=== PATIENT | female | born 1955 | race Caucasian/White ===

== ENCOUNTER 2016-06-28 09:12 | Day surgery (SDC) | payer OTHER ==
[2016-06-24 16:03] VITALS: BMI 27.1
[2016-06-28 09:47] VITALS: TEMP 97.8
[2016-06-28] MEDS: LACTATED RINGERS 1,000 ML IV SCH ×2 (09:54→10:01)
[2016-06-28] MEDS ORDERED: PROPOFOL 10 MG/ML 20 ML VIAL IV ONE (10:04)
[2016-06-28] MEDS ORDERED: MIDAZOLAM 2 MG/2 ML VIAL ONE (10:04)
[2016-06-28] MEDS ORDERED: fentaNYL (PF) 50 MCG/ML 2 ML AMP ONE (10:04)
--- NOTE | 2016-06-28 10:10 | P.GSHP ---
History of Present Illness H&P Date: 06/28/16 Chief Complaint: Colon cancer screening Patient here today for colonoscopy. She has not had one previously. She has no bowel related complaints. No family history of colon cancer. Past Medical History Past Medical History: Hyperlipidemia, Hypertension, Osteoarthritis (OA), Skin Disorder, Sleep Apnea/CPAP/BIPAP Additional Past Medical History / Comment(s): rash from soap allergy, History of Any Multi-Drug Resistant Organisms: None Reported Past Surgical History: Breast Surgery, Tubal Ligation Additional Past Surgical History / Comment(s): hemorrhoidectomy, left breast biopsy Past Anesthesia/Blood Transfusion Reactions: Motion Sickness, Postoperative Nausea & Vomiting (PONV) Past Psychological History: No Psychological Hx Reported Smoking Status: Current every day smoker Past Alcohol Use History: None Reported Additional Past Alcohol Use History / Comment(s): smokes < 1 PPD, has smoked since age 24 Past Drug Use History: None Reported - Past Family History Mother Family Medical History: Cancer Additional Family Medical History / Comment(s): pancreatic Medications and Allergies Home Medications Medication Instructions Recorded Confirmed Type Atorvastatin [Lipitor] 40 mg PO QAM 06/24/16 06/28/16 History Benazepril [Lotensin] 10 mg PO QAM 06/24/16 06/28/16 History Cholecalciferol [Vitamin D3] 5,000 unit PO DAILY 06/24/16 06/28/16 History Allergies Allergy/AdvReac Type Severity Reaction Status Date / Time nickel Allergy Rash/Hives Verified 06/28/16 09:57 Surgical - Exam Vital Signs Temp Pulse Resp BP Pulse Ox 97.8 F 94 18 135/74 96 06/28/16 09:46 06/28/16 09:46 06/28/16 09:46 06/28/16 09:46 06/28/16 09:46 Physical exam: General: Well-developed, well-nourished HEENT: Normocephalic, sclerae nonicteric Abdomen: Nontender, nondistended Extremities: No edema Neuro: Alert and oriented Assessment and Plan (1) Colon cancer screening Narrative/Plan: Will proceed with colonoscopy at this time. Status: Acute
--- NOTE | 2016-06-28 10:31 | P.PCN ---
Date of Procedure: 06/28/16 Procedure(s) Performed: PREOPERATIVE DIAGNOSIS: Colon cancer screening POSTOPERATIVE DIAGNOSIS: Rectal polyp 2 PROCEDURE: Colonoscopy with snare polypectomy ANESTHESIA: MAC SURGEON: Chay Grady M.D. SPECIMENS: Rectal polyp ENDOSCOPIC PROCEDURE: The patient was placed on the endoscopy table in the left decubitus position. The Olympus colonoscope was inserted into the anus and passed under direct visualization to the base of the cecum. The appendiceal orifice was visualized. From that point the scope was slowly withdrawn inspecting all surfaces carefully. There were no neoplastic inflammatory or polypoid lesions throughout the cecum, ascending, transverse, descending, and sigmoid colon. In the rectum there were 2 small polyps removed using the snare with cautery technique. No visible diverticulosis was seen. Digital rectal examination was normal. The patient was taken to the recovery room in stable condition per anesthesia guidelines. RECOMMENDATIONS: Await biopsy results.
[2016-06-28 10:33] VITALS: RESP 16
[2016-06-28 10:53] VITALS: BP 110/71; PULSE 89
== END 2016-06-28 11:09 | disposition home or self-care (01) ==
LOC: ORWHC2ENDO 09:12
PROVIDERS: ATTEND Surgery
DX: Z12.11 Encounter for screening for malignant neoplasm of colon (principal); K62.1 Rectal polyp; E78.5 Hyperlipidemia, unspecified; I10 Essential (primary) hypertension; G47.30 Sleep apnea, unspecified; Z99.89 Dependence on other enabling machines and devices; F17.200 Nicotine dependence, unspecified, uncomplicated; Z79.899 Other long term (current) drug therapy; Z91.09 Other allergy status, other than to drugs and biological substances
CPT/HCPCS: 88305; 45385; J2250; J3010; J2704

== ENCOUNTER 2017-01-27 07:30 | Inpatient (IN) | payer OTHER ==
[2017-01-22 09:11] VITALS: BMI 26.6
--- NOTE | 2017-01-26 16:18 | HP ---
HISTORY AND PHYSICAL Surgery is scheduled for 01/27/2017. Anastasiya Sanders is a 61-year-old patient seen with symptomatic left knee osteoarthritis. After discussing treatment options, she elected to proceed with left total knee arthroplasty. Consent was obtained. Medical clearance was provided by Dr. Flor. PAST MEDICAL HISTORY: Hypertension. PAST SURGICAL HISTORY: Noncontributory. DAILY MEDICATIONS: Atorvastatin, benazepril. ALLERGIES: None reported. SOCIAL HISTORY: Patient currently smokes 1 pack cigarettes daily. PHYSICAL EXAMINATION: Evaluation left knee: Range of motion is -2/3to 125 degrees. Mild effusion. Tenderness along the lateral joint line. Positive lateral Evelyn's. Crepitus along the lateral and patellofemoral compartments. Range of motion. Pain with patellofemoral compression. Ligaments stable. Hip rotation without pain. Distal neurovascular exam intact. RADIOGRAPHS: Left knee radiographs reveal severe lateral, moderate patellofemoral compartment osteoarthritis. IMPRESSION: Left knee osteoarthritis. PLAN: Left total knee arthroplasty. MMODL / IJN: [id number] /
[~2017-01-27 07:30] MED LIST: ACETAMINOPHEN TAB 500 MG TAB PO ONE; DEXAMETHASONE SOD PHOSPHATE 10 MG/ML 1 ML VIAL IV ONE; MELOXICAM 7.5 MG TAB PO ONE; MIDAZOLAM 2 MG/2 ML VIAL IV PRN; ONDANSETRON 4 MG/2 ML VIAL IVP ONE; SCOPOLAMINE 1.5MG/72HR PATCH TRANSDERM ONE; TRANEXAMIC ACID 1,000 MG in SODIUM CHLORIDE 0.9% 100 ML IVPB ONE; ceFAZolin IN SWFI 2 GM/20 ML SYRINGE IVP ONE
[2017-01-27] MEDS: LACTATED RINGERS 1,000 ML IV SCH (09:21)
[2017-01-27] MEDS ORDERED: LIDOCAINE 1% 20 ML VIAL (10MG/ML) FOR IV START INTRADERMA ONE (09:21)
[2017-01-27] MEDS ORDERED: ROPIVACAINE 1,100 MG, SODIUM CHLORIDE 0.9% 330 ML MISCELLANE PRN ×2 (10:07)
--- NOTE | 2017-01-27 10:09 | P.ONQ ---
Anesthesiology Proc Note - PNB - Peripheral Nerve Block Performed Left Adductor Canal Indication: Acute Post-Operative Pain, Requested by physician (Dr Schroeder) Sedation Type: Sedate with meaningful contact maintained Preparation: Sterile Dressing Position: Supine Catheter: Indwelling Needle Types: Other (see comment) (Ranjan) Needle Size: 100mm (4") Needle Gauge: 20 Technique: Ultrasound Injectate: 0.5% Ropivacaine (see comment for volume) (20cc) Blood Aspirated: No Pain Paresthesia on Injection Noted: No Resistance on Injection: Normal Events: Uneventful and Well Tolerated
[2017-01-27] MEDS ORDERED: ROPIVACAINE 246.25 MG, EPINEPHrine 0.5 MG, KETOROLAC 30 MG, cloNIDine HCL/PF 80 MCG, WA... MISCELLANE ONE ×5 (10:22)
[2017-01-27] MEDS ORDERED: NEOSTIGMINE 1 MG/ML 10 ML VIAL ONE (10:57)
[2017-01-27] MEDS ORDERED: ROCURONIUM BROMIDE 10 MG/ML 10 ML VIAL IV ONE (10:57)
[2017-01-27] MEDS ORDERED: LIDOCAINE 1% INJ 10MG/ML (20 ML MDV) ONE (10:57)
[2017-01-27] MEDS ORDERED: HYDROmorphone (PF) 1 MG/ML ONE (10:57)
[2017-01-27] MEDS ORDERED: SODIUM CHLORIDE 0.9% 100 ML BAG ONE (10:57)
[2017-01-27] MEDS ORDERED: GLYCOPYRROLATE 0.2 MG/ML 2 ML VIAL ONE (10:57)
[2017-01-27] MEDS ORDERED: SUCCINYLCHOLINE CHLORIDE 100 MG/5 ML SYR IV ONE (10:57)
[2017-01-27] MEDS ORDERED: fentaNYL (PF) 50 MCG/ML 2 ML AMP ONE (10:57)
[2017-01-27] MEDS ORDERED: PROPOFOL 10 MG/ML 20 ML VIAL IV ONE (10:57)
[2017-01-27] MEDS ORDERED: TRANEXAMIC ACID 1,000 MG/10 ML VIAL ONE (10:57)
[2017-01-27] MEDS ORDERED: SODIUM CHLORIDE 0.9% 0 ML with ceFAZolin 2 GM IV ONE ×2 (10:57)
[2017-01-27] MEDS ORDERED: LACTATED RINGERS 1,000 ML IV ONE (12:30)
--- NOTE | 2017-01-27 13:06 | P.OP ---
Date of Procedure: 01/27/17 Preoperative Diagnosis: Left knee osteoarthritis Postoperative Diagnosis: Left knee osteoarthritis Procedure(s) Performed: Left total knee arthroplasty Implants: 1. Sly NexGen LPS size D left tivanium cemented femur 2. Sly NexGen size 4 left tivanium cemented tibia 3. Sly NexGen LPS flex size C/D 10 mm polyethylene tibial insert 4. Sly NexGen size 32 all polyethylene cemented patella Anesthesia: GETA, regional (Adductor canal catheter), local Surgeon: Abel Schroeder Endband Cutter Hand #1: Geo Nails Estimated Blood Loss (ml): 100 Pathology: other (Bone) Condition: stable Disposition: PACU Indications for Procedure: 61-year-old patient seen with symptomatic left knee osteoarthritis. After treatment options were discussed, she elected to proceed with total knee arthroplasty. Patient did have a documented history of nickel ALLERGY. Operative Findings: See description of procedure Description of Procedure: Patient was taken to the operative suite after having an adductor canal catheter placed by the department of anesthesia. Patient underwent a general anesthetic by the department of anesthesia. Patient was given preoperative IV intake antibiotics and TXA. A well-padded tourniquet was placed about the [] lower extremity. The lower extremity was then prepped and draped in the normal sterile orthopedic fashion. The extremity was elevated, a tourniquet was insufflated to 350. A standard anterior incision was made sharply through skin. Dissection was taken down through the subcutaneous soft tissues down to the extensor mechanism. A medial arthrotomy was performed, patella was everted and knee was flexed. There was advanced osteoarthritis noted. A proximal tibial cutting guide was positioned. Proximal tibial cut was made. A distal intramedullary femoral cutting guide was positioned, distal femoral cut made. We placed the appropriate sizing guide and selected the appropriate size. A distal 4-in-1 femoral cutting block was positioned, distal femoral cuts were made. We now placed a trial femoral component into position, along with an appropriate size tibial tray and insert. We now took the knee through range of motion and had full extension good flexion and good overall soft tissue balance noted. The patella was everted and a flush cut made with patellar quad tendon. We templated the patella, appropriate drill holes were made. An appropriate trial patella was positioned, knee was taken through full range of motion with the patella tracking very nicely. The trial patella was removed. Drill holes were made through the femoral component. All trial components were removed after marking off the appropriate rotation of the tibia. Retractors were now positioned along the proximal tibia. An appropriate keel punch was made with the appropriate size tibial guide. At this point appropriate size implants were chosen and opened. The joint was irrigated copiously with pulse lavage mechanical irrigation. The posterior capsule was infiltrated with local analgesic. We mixed antibiotic methylmethacrylate. Once the methyl methacrylate was ready, the tibial component was cemented into place removing any excess methylmethacrylate. The femoral component was cemented into place removing the removing any excess methylmethacrylate. We then inserted the appropriate size polyethylene tibial insert. We made sure that it was locked into position. We took the knee into full extension, and then back in a flexion making sure we had removed any excess methylmethacrylate. The patellar component was then cemented down and secured with clamp. Excess methylmethacrylate removed. We kept the knee in full extension, patellar clamp in position until methylmethacrylate had hardened. Once it had hardened the patellar clamp was removed. The knee was taken through full range of motion. The patella tracked nicely. There was good soft tissue balancing. The tourniquet was now released. Additional hemostasis was achieved via electrocautery. A second gram of TXA was given. The wound was irrigated with pulse lavage mechanical irrigation. The extensor mechanism was repaired with Vicryl. We checked the repair with range of motion and it was stable. The subcutaneous soft tissues were repaired with Vicryl in layers. The skin was approximated with pernio/Dermabond. Sterile dressings were applied followed by loose web roll and Lonny bandage. The patient was transferred to a bed, and taken to recovery in stable and satisfactory condition. Eddie LAW assisted with the procedure.
[2017-01-27] MEDS ORDERED: NALOXONE 0.4 MG/ML 1 ML VIAL IV PRN (13:07)
[2017-01-27] MEDS ORDERED: HYDROmorphone 0.5 MG/0.5 ML SYRINGE IVP PRN ×2 (13:07)
[2017-01-27] MEDS ORDERED: HYDROcodone/APAP 7.5-325MG 1 EACH TAB PO PRN (13:07)
[2017-01-27] MEDS ORDERED: HYDROmorphone 2 MG/ML 1 ML SYRINGE IVP PRN (13:07)
[2017-01-27] MEDS ORDERED: hydrOXYzine PAMOATE 25 MG CAP PO PRN (13:07)
[2017-01-27] MEDS: HYDROmorphone 0.5 MG/0.5 ML SYRINGE IVP PRN ×3 (13:30→13:37)
--- NOTE | 2017-01-27 14:14 | XR ---
EXAMINATION TYPE: XR knee limited LT DATE OF EXAM: 01/27/2017 CLINICAL HISTORY: Postoperative evaluation Two views of the left knee are submitted. Identified are changes of total knee arthroplasty with fem oral and tibial components appearing well seated. Postsurgical soft tissue changes are noted. Align ment is anatomic.
[2017-01-27] MEDS: ONDANSETRON 4 MG/2 ML VIAL IVP PRN ×2 (14:23→22:05)
[2017-01-27] MEDS ORDERED: ACETAMINOPHEN TAB 325 MG TAB PO STA (15:32)
[2017-01-27] MEDS ORDERED: SODIUM CHLORIDE 0.9% 500 ML IV ONE (15:38)
[2017-01-27] MEDS ORDERED: ACETAMINOPHEN IV (For NPO) 1,000 MG in EMPTY BAG 1 BAG IVPB ONE (16:00)
[2017-01-27] MEDS: ceFAZolin IN SWFI 2 GM/20 ML SYRINGE IVP SCH (20:26)
[2017-01-27] MEDS: SENNOSIDES-DOCUSATE SODIUM 1 EACH TAB PO SCH (20:26)
[2017-01-27] MEDS: traMADol 50 MG TAB PO SCH (20:37)
--- NOTE | 2017-01-27 22:33 | CONS ---
CONSULTATION DATE OF CONSULTATION: 01/27/17. CHIEF COMPLAINT: Arthritis left knee. HISTORY OF PRESENT ILLNESS: This is the first known admission to this hospital. She is in for elective left TKA. She is in good health otherwise. REVIEW OF SYSTEMS: She is having some nausea probably due to analgesics. She is having a significant amount of pain in the knee as well. She denies any headaches, neurologic changes, cough, shortness of breath, hemoptysis, angina, heart disease, palpitations, orthopnea, PND, abdominal pain, hematemesis, melena, hematochezia, etc. She has had no history of renal disease. She is not diabetic. Past medical history, family history, personal and social history reveal that she is ALLERGIC TO TOPICAL NEOMYCIN, NICKEL, IN [place]. MEDICATIONS: Medicines at home include: 1. Lipitor 40. 2. Vitamin D 1000 a day. 3. Benazepril 10 mg once a day. FAMILY HISTORY: Family history social history unremarkable and noncontributory except that she has heavy smoker. PHYSICAL EXAMINATION: Physical examination reveals blood pressure is 140/90 with a pulse of 98, respirations of 25 and she is afebrile. General she appeared to be uncomfortable. Skin is dry and lymph nodes not enlarged. Head, ears, eyes, nose, mouth, and throat were normal. Neck veins not distended. Thyroid is not enlarged. Chest is clear. Cardiac exam is normal. Abdomen is soft, nontender. EXTREMITIES: Normal. The knee is dressed. IMPRESSION: 1. Osteoarthritis left knee status post left total knee arthroplasty. 2. Hypertension. 3. Chronic obstructive pulmonary disease. PLAN: 1. Treat nausea. 2. Consider switching to alternative analgesics. MMODL / IJN: [id number] /
[2017-01-28] MEDS: ceFAZolin IN SWFI 2 GM/20 ML SYRINGE IVP SCH (00:15)
[2017-01-28] MEDS: traMADol 50 MG TAB PO SCH ×5 (00:44→20:59)
[2017-01-28] MEDS: LACTATED RINGERS 1,000 ML IV SCH ×6 (00:44→21:07)
[2017-01-28] MEDS ORDERED: SODIUM CHLORIDE 0.9% 500 ML IV ONE (01:39)
[2017-01-28 07:21] LABS: Basophils % (A) 0 %; CH 32.5; CHCM 32.2; Eosinophils % (A) 0 %; HCT 38.6 % (34.0-46.0); HDW 2.24; HGB 12.4 gm/dL (11.4-16.0); Luc % (Auto) 1; Lymphocytes # (A) 1.3 k/uL (1.0-4.8); Lymphocytes % (A) 7 %; MCH 32.5 pg (25.0-35.0); MCHC 32.1 g/dL (31.0-37.0); MCV 101.3 fL (80.0-100.0); Macrocytosis Slight; Mean Platelet Volume 8.1; Monocytes # (A) 0.8 k/uL (0-1.0); Monocytes % (A) 4 %; Neutrophils # (A) 17.9 k/uL (1.3-7.7); Neutrophils % (A) 89 %; RBC 3.81 m/uL (3.80-5.40); RDW 14.2 % (11.5-15.5); WBC 20.1 k/uL (3.8-10.6); WBC (Perox) 21.14
[2017-01-28] MEDS: ONDANSETRON 4 MG/2 ML VIAL IVP PRN (07:24)
--- NOTE | 2017-01-28 08:27 | P.PN ---
Progress Note - Text The patient is status post left adductor canal catheter placement. The catheter was placed for postoperative pain control, status post total left arthroplasty. Ropivacaine 0.2% is infusing at 8 mLs per hour. The patient has no complaints of left lower extremity numbness or weakness. Patient's VAS score is 3-10. Assessment: Patient's adductor canal catheter is in place and working appropriately. Plan: continue infusion and adjust it as needed.
[2017-01-28] MEDS ORDERED: LISINOPRIL 10 MG TAB PO SCH (09:00)
[2017-01-28] MEDS: ENOXAPARIN 30 MG/0.3 ML SYRINGE SQ SCH ×2 (09:04→21:00)
[2017-01-28] MEDS: MELOXICAM 7.5 MG TAB PO SCH (09:05)
[2017-01-28] MEDS: FAMOTIDINE 20 MG TAB PO SCH (09:06)
[2017-01-28] MEDS: ATORVASTATIN 40 MG TAB PO SCH (09:06)
[2017-01-28] MEDS: CHOLECALCIFEROL 1,000 UNIT TAB PO SCH (09:06)
[2017-01-28] MEDS ORDERED: MULTIVITAMINS, THERA 1 EACH TAB PO SCH (12:00)
--- NOTE | 2017-01-28 13:18 | P.PN ---
Subjective Progress Note Date: 01/28/17 Principal diagnosis: Status post left total knee arthroplasty Patient seen today resting in her hospital chair, she appears to be no acute distress. Her family is present at bedside. Patient states yesterday she had some severe nausea and vomiting, this has improved. She hasn't ambulated much with therapy at this time, and the urinary catheter remains intact. She denies any headaches, lightheadedness, chest pain or shortness of breath. Objective - Vital Signs Vital signs: Vital Signs Temp 98.3 F 01/28/17 07:00 Pulse 88 01/28/17 11:54 Resp 15 01/28/17 07:00 BP 89/54 01/28/17 11:54 Pulse Ox 96 01/28/17 08:46 Intake & Output 01/27/17 01/28/17 01/28/17 18:59 06:59 18:59 Intake Total 1620 3818 Output Total 300 825 Balance 1320 2993 Weight 78.471 kg 78.471 kg Intake: IV 1620 Intake, IV Titration 3000 Amount ACETAMINOPHEN IV (For NPO 100 ) 1,000 mg In Empty Bag 1 bag @ 400 mls/hr IVPB ONCE ONE Rx#:[id number] Lactated Ringers 1,000 ml 1000 @ 200 mls/hr IV .Q5H [facility] Rx#:[id number] Sodium Chloride 0.9% 500 1900 ml @ 999 mls/hr IV .Q31M ONE Rx#:[id number] Oral 818 Output: Urine 200 825 Uretheral (Martini) 825 Estimated Blood Loss 100 Other: Voiding Method Indwelling Catheter Indwelling Catheter - Exam Left lower extremity: Incision is clean, dry, and intact. The prineo tape is in good condition. There is minimal soft tissue swelling and ecchymosis surrounding the medial and lateral aspects of the incision. Calf is soft, no tenderness with palpation. Plantar flexion, dorsiflexion, EHL, FHL are intact. Sensory exam to light touch throughout the extremity is intact, dorsal pedis pulses 2+. - Labs CBC & Chem 7: 01/28/17 06:36 Labs: Abnormal Lab Results - Last 24 Hours (Table) 01/28/17 Range/Units 06:36 WBC 20.1 H (3.8-10.6) k/uL MCV 101.3 H (80.0-100.0) fL Neutrophils # 17.9 H (1.3-7.7) k/uL Assessment and Plan Plan: Assessment: I 1. Postop day #1 status post left total knee arthroplasty Plan: 1. Pain control, limit narcotic usage and nausea 2. Continue work physical therapy and use of CPM 3. Remove the urinary catheter 4. Daily dressing changes/ice and elevate 5. Encourage incentive spirometer 6. Medical recommendations 7. GI and DVT prophylaxis, continue Lovenox 8. Discharge planning: Keep the patient overnight, possible discharge home on 01/29/2017 Time with Patient: Less than 30
[2017-01-28 15:30] VITALS: RESP 16
[2017-01-28] MEDS: SENNOSIDES-DOCUSATE SODIUM 1 EACH TAB PO SCH (20:59)
[2017-01-29] MEDS: HYDROcodone/APAP 7.5-325MG 1 EACH TAB PO PRN ×2 (01:52→07:25)
[2017-01-29] MEDS: LACTATED RINGERS 1,000 ML IV SCH ×3 (05:44→05:47)
[2017-01-29 07:24] VITALS: BP 120/79; PULSE 86; TEMP 98.1
[2017-01-29] MEDS: traMADol 50 MG TAB PO SCH (09:22)
[2017-01-29] MEDS: ENOXAPARIN 30 MG/0.3 ML SYRINGE SQ SCH (09:23)
[2017-01-29] MEDS: ATORVASTATIN 40 MG TAB PO SCH (09:23)
[2017-01-29] MEDS: CHOLECALCIFEROL 1,000 UNIT TAB PO SCH (09:23)
[2017-01-29] MEDS: FAMOTIDINE 20 MG TAB PO SCH (09:23)
[2017-01-29] MEDS: MELOXICAM 7.5 MG TAB PO SCH (09:23)
--- NOTE | 2017-01-29 10:24 | P.PN ---
Subjective Progress Note Date: 01/29/17 Principal diagnosis: Status post left total knee arthroplasty Patient seen today resting in her hospital chair, she appears to be no acute distress. Her family is present at bedside. Patient is feeling a lot better today, the nausea has improved. She's been up walking well with therapy. She denies any headaches, lightheadedness, chest pain or shortness of breath. Objective - Vital Signs Vital signs: Vital Signs Temp 98.1 F 01/29/17 07:24 Pulse 86 01/29/17 07:24 Resp 16 01/29/17 07:24 BP 120/79 01/29/17 07:24 Pulse Ox 93 L 01/29/17 07:24 Intake & Output 01/28/17 01/29/17 01/29/17 18:59 06:59 18:59 Output Total 1200 Balance -1200 Output: Urine 1200 Uretheral (Martini) 800 Other: Voiding Method Toilet Toilet # Voids 2 4 # Bowel Movements 0 - Exam Left lower extremity: Incision is clean, dry, and intact. The prineo tape is in good condition. There is minimal soft tissue swelling and ecchymosis surrounding the medial and lateral aspects of the incision. Calf is soft, no tenderness with palpation. Plantar flexion, dorsiflexion, EHL, FHL are intact. Sensory exam to light touch throughout the extremity is intact, dorsal pedis pulses 2+. - Labs CBC & Chem 7: 01/28/17 06:36 Assessment and Plan Plan: Assessment: 1. Postop day #2 status post left total knee arthroplasty Plan: 1. Pain control, limit narcotic usage and nausea 2. Continue work physical therapy and use of CPM 3. Remove the urinary catheter 4. Daily dressing changes/ice and elevate 5. Encourage incentive spirometer 6. Medical recommendations 7. GI and DVT prophylaxis, aspirin 325 mg twice a day 8. Discharge planning: Patient will be discharged home today Time with Patient: Less than 30
--- NOTE | 2017-01-29 10:28 | P.DS ---
Providers Date of admission: 01/27/17 08:42 Expected date of discharge: 01/29/17 Attending physician: Abel Schroeder Consults: 01/27/17 13:07 Consult Physician Routine Consulting Provider: Manny Flor Reason/Comments: Medical management Do you want consulting provider notified?: Yes Primary care physician: Manny Flor Hospital Course: Date of admission: 01/27/2017 Date of discharge: 01/29/2017 Admission diagnosis: Status post left total knee arthroplasty Discharge diagnosis: Same Attending physician: Dr. Schroeder Surgical procedures: Left total knee arthroplasty Brief history: Patient is a 61-year-old female with a history of progressive primary left knee osteoarthritis. At this point patient has failed conservative treatment measures and has opted to proceed with a elective left total knee arthroplasty. Hospital course: Details of patient's surgery can be found in operative report. Patient tolerated the procedure well and was subsequently transported to orthopedic floor. Patient's orthopeidc and medical care was provided daily. Patient had daily laboratory tests performed for evaluation of overall blood counts. Patient had daily physical therapy to include strengthening range of motion as well as education with walker ambulation. Patient had daily CPM usage as part of their physical therapy program. Patient was treated with Lovenox for their postoperative DVT prophylaxis during their inpatient stay. Patient was noted to have a relatively uneventful postoperative course. Patient reported satisfactory pain control with oral pain medications by postoperative day 0. Patient showed satisfactory progress with physical therapy. Patient moved steadily through the program and had no difficulty meeting the goals by postoperative day 2. Given patient's otherwise satisfactory course and having met physical therapy goals, plan is to discharge patient home on postoperative day 2. Discharge condition/disposition: Patient will be discharged home in stable condition. Discharge medications: Instructions are given on resumption of patient's normal daily medications per primary care recommendation, in addition patient will be prescribed [place] 7.5 mg/325 mg, tramadol 50 mg, Colace 100 mg, Pepcid 20 mg, aspirin 325 mg. Discharge instructions: 1. Wound care and infection precautions, keep incision dry and covered while showering, no lotions, creams, moisturizers. No soaking, tubs, pools, hottubs. Do not scrub over the incision. 2. Weight-bear as tolerated with walker / cane until follow-up. 3. Ice and elevate when necessary. Do not exceed 20 minutes per hour with ice pack. 4. Utilize compression sleeve until seen at first follow up appointment. 5. Visiting nursing care. 6. Home physical therapy. 7. Pain meds and anticoagulants per prescription. 8. Pain medication has potential to cause constipation. Increase oral fluid and fiber intake. Contact primary care provider if you have not had a bowel movement within 48 hours after discharge 9. No anti-inflammatory medication until discussed at first post operative visit, this including Motrin, Aleve, Mobic, Diclofenac. 10. Follow up in office at 2 weeks postop with Eddie Nails PA-C 11. Follow up with your primary care doctor 7-10 days after discharge. 12. Contact [facility] with any questions, . Procedures: Left total knee arthroplasty Patient Condition at Discharge: Good Plan - Discharge Summary Discharge Rx Participant: Yes New Discharge Prescriptions: New Aspirin 325 mg PO BID #60 tab Docusate [Colace] 100 mg PO DAILY #30 capsule Famotidine [Pepcid] 20 mg PO DAILY #30 tablet HYDROcodone/APAP 7.5-325MG [[place] 7.5] 1 - 2 each PO Q6HR PRN #40 tab PRN Reason: Pain traMADol HCl [Ultram] 50 mg PO Q6H PRN #40 tab PRN Reason: Pain No Action Cholecalciferol [Vitamin D3] 5,000 unit PO DAILY Atorvastatin [Lipitor] 40 mg PO QAM Benazepril [Lotensin] 10 mg PO QAM Discharge Medication List Atorvastatin [Lipitor] 40 mg PO QAM 06/24/16 [History] Benazepril [Lotensin] 10 mg PO QAM 06/24/16 [History] Cholecalciferol [Vitamin D3] 5,000 unit PO DAILY 06/24/16 [History] Aspirin 325 mg PO BID #60 tab 01/29/17 [Rx] Docusate [Colace] 100 mg PO DAILY #30 capsule 01/29/17 [Rx] Famotidine [Pepcid] 20 mg PO DAILY #30 tablet 01/29/17 [Rx] HYDROcodone/APAP 7.5-325MG [[place] 7.5] 1 - 2 each PO Q6HR PRN #40 tab 01/29/17 [ Rx] traMADol HCl [Ultram] 50 mg PO Q6H PRN #40 tab 01/29/17 [Rx] Follow up Appointment(s)/Referral(s): Manny Flor MD [Primary Care Provider] - 02/05/17 11:30 am Geo Nails PAC [PHYSICIAN [employer]] - 02/12/17 2:50 pm Patient Instructions/Handouts: Joint Replacement Surgery (DC) Activity/Diet/Wound Care/Special Instructions: Orthopedic Discharge Instructions: 1. Wound care and infection precautions, keep incision dry and covered while showering, no lotions, creams, moisturizers. No soaking, pools, hot tubs. Do not scrub over incision. 2. Weight-bear as tolerated with walker / cane until follow-up. 3. Ice and elevate when necessary. Do not exceed 20 minutes per hour with ice pack. 4. Utilize compression sleeve until seen at first follow up appointment. 5. Visiting nursing care. 6. Home physical therapy including home CPM. 7. Pain meds and anticoagulants per prescription. 8. Pain medication has potential to cause constipation. Increase oral fluid and fiber intake. Contact primary care provider if you have not had a bowel movement within 48 hours after discharge. 9. No anti-inflammatory medication until discussed at first post operative visit, this including Motrin, Aleve, Mobic, Diclofenac. 10. Follow up in office at 2 weeks postop with Eddie Nails PA-C 11. Follow up with your primary care doctor 7-10 days after discharge. 12. Contact [facility] with any questions, . [facility] - [phone] Discharge Disposition: HOME WITH HOME HEALTH SERVICES
--- NOTE | 2017-01-29 13:53 | PN ---
PROGRESS NOTE DATE OF SERVICE: 01/28/2017 CHIEF COMPLAINT: Status post left TKA. HISTORY OF PRESENT ILLNESS: This lady is a doing well. She is not having as much nausea now. Her blood pressure has been quite low, however. IV fluids have been given. PHYSICAL EXAM: She is awake and alert and color is good. Chest is clear. Cardiac exam is normal. The abdomen is soft, nontender. IMPRESSION: 1. Hypotension. 2. Dehydration. 3. History of hypertension. 4. Status post left total knee arthroplasty. PLAN: Increase fluids and she will probably go home tomorrow. MMODL / IJN: [id number] /
--- NOTE | 2017-01-29 19:08 | PN ---
PROGRESS NOTE CHIEF COMPLAINT: Arthritis left knee. HISTORY OF PRESENT ILLNESS: This lady is doing well. She has had no fever, chills, chest pain, cough, shortness of breath, etc. and she is going home today. PHYSICAL EXAM: CHEST: Clear. Cardiac exam is normal. The abdomen is soft, nontender. IMPRESSION: 1. Status post left total knee arthroplasty. 2. Hypertension. 3. Chronic obstructive pulmonary disease. PLAN: Home today and we will see her in followup in the office. MMODL / IJN: [id number] /
== END 2017-01-29 12:44 | disposition home health service (06) | DRG 470 ==
LOC: 2ORMAIN 08:42 → 3SUR 13:20
PROVIDERS: ADMIT Orthopaedic Surgery; ATTEND Orthopaedic Surgery
PROC: 0SRD0J9 Replacement of Left Knee Joint with Synthetic Substitute, Cemented, Open Approach (ICD-10-PCS; principal; 2017-01-27 10:30)
DX: M17.12 Unilateral primary osteoarthritis, left knee (principal); I95.9 Hypotension, unspecified; I10 Essential (primary) hypertension; E86.0 Dehydration; F17.210 Nicotine dependence, cigarettes, uncomplicated; E78.5 Hyperlipidemia, unspecified; J44.9 Chronic obstructive pulmonary disease, unspecified; R11.2 Nausea with vomiting, unspecified; T39.95XA Adverse effect of unspecified nonopioid analgesic, antipyretic and antirheumatic, initial encounter; Z91.048 Other nonmedicinal substance allergy status; Z79.899 Other long term (current) drug therapy; Y92.239 Unspecified place in hospital as the place of occurrence of the external cause
CPT/HCPCS: 85025; 88300; 94760

== ENCOUNTER → 2019-03-09 | Outpatient (CLI) | payer OTHER ==
--- NOTE | 2019-03-11 14:29 | MM ---
Reason for exam: screening (asymptomatic). Last mammogram was performed 5 years and 1 month ago. History: Patient is postmenopausal. Cyst aspiration of the left breast. Cyst aspiration of the right breast. Excisional biopsy of the left breast. Physical Findings: A clinical breast exam by your physician is recommended on an annual basis and results should be correlated with mammographic findings. MG Screening Mammo w CAD Bilateral CC and MLO view(s) were taken. Prior study comparison: February 21, 2014, bilateral MG diagnostic mammo w CAD EN. The breast tissue is heterogeneously dense. This may lower the sensitivity of mammography. There is chronic nodularity in the right breast. Post excisional changes left breast. New or enlarging nodularity posterior, central left breast. ASSESSMENT: Incomplete: need additional imaging evaluation, BI-RAD 0 RECOMMENDATION: Special view mammogram of the left breast. If lesion persists on supplemental views, image directed ultrasound is recommended. [facility] will attempt to contact patient to return for supplemental views and ultrasound if indicated.
== END ==
LOC: RADMAMWWP 08:26
PROVIDERS: ATTEND Family Medicine
DX: Z12.31 Encounter for screening mammogram for malignant neoplasm of breast (principal); R92.8 Other abnormal and inconclusive findings on diagnostic imaging of breast
CPT/HCPCS: 77067

== ENCOUNTER → 2019-04-05 | Outpatient (CLI) | payer OTHER ==
--- NOTE | 2019-04-05 12:16 | MM ---
Reason for exam: additional evaluation requested from abnormal screening. Last mammogram was performed 1 month ago. History: Patient is postmenopausal. Cyst aspiration of the left breast. Cyst aspiration of the right breast. Excisional biopsy of the left breast. Took hormonal contraceptives for 1 year. Physical Findings: Nurse did not find any significant physical abnormalities on exam. MG Work Up Mamm w CAD LT Spot compression CC, spot compression MLO, and LM view(s) were taken of the left breast. Prior study comparison: March 09, 2019, bilateral MG screening mammo w CAD. February 21, 2014, bilateral MG diagnostic mammo w CAD EN. The breast tissue is heterogeneously dense. This may lower the sensitivity of mammography. There is a persistent 8mm mass 6.5-8cm from nipple in the left lower outer quadrant. Multiple other circumscribed masses are stable. Benign appearing calcifications in the left breast. These results were verbally communicated with the patient and result sheet given to the patient on 04/05/19. ASSESSMENT: Incomplete: need additional imaging evaluation, BI-RAD 0 RECOMMENDATION: Ultrasound of the left breast. (lower inner quadrant)
--- NOTE | 2019-04-06 10:47 | USB ---
Reason for exam: additional evaluation requested from abnormal screening. History: Patient is postmenopausal. Cyst aspiration of the left breast. Cyst aspiration of the right breast. Excisional biopsy of the left breast. Took hormonal contraceptives for 1 year. US Breast Workup Limited LT Left limited breast ultrasound including focal area of concern, retroareolar and axilla demonstrates a 1.1 x 0.4 x 0.8cm oval, cystic, hypoechoic lesion at 4 o'clock. Complex cyst with septation and interval echoes therefore biopsy recommended. Correlate with post biopsy marker placement on mammogram. These results were verbally communicated with the patient and result sheet given to the patient on 04/05/19. ASSESSMENT: Suspicious, BI-RAD 4 RECOMMENDATION: Ultrasound core biopsy of the left breast. Called Dr. Flor's office with mammographic findings and has scheduled an appointment for the patient for 04/29/19 at 11:[address] Feliz. Biopsy scheduled for 04/22/19 at 12:20. PRELIMINARY REPORT CALLED AND FAXED TO DR. FELIZ ON 04/05/19.
== END | disposition home or self-care (01) ==
LOC: RADMAMWWP 10:04
PROVIDERS: ATTEND Family Medicine
DX: R92.8 Other abnormal and inconclusive findings on diagnostic imaging of breast (principal)
CPT/HCPCS: 77065

== ENCOUNTER → 2019-04-22 | Day surgery (SDC) | payer OTHER ==
[2019-04-22 11:34] VITALS: RESP 16; TEMP 98.1
--- NOTE | 2019-04-22 12:57 | USB ---
EXAMINATION TYPE: US biopsy breast VAD LT, MG diagnostic mammo LT wo CAD DATE OF EXAM: 04/22/2019 CLINICAL HISTORY: R92.8 ABN MAMMO. TECHNIQUE: Ultrasound guided core biopsy of left breast. COMPARISON: Left breast ultrasound dated 04/05/2019 FINDINGS: The procedure of ultrasound guided core biopsy was explained to the patient. Benefits, alternatives, and risks were discussed. An informed consent was then obtained. Preprocedural timeout was performed. The patient was placed in supine positioning for imaging and for the procedure. The overlying skin was prepped and draped in usual sterile fashion. 10 cc of 1% lidocaine was used as anesthetic into the skin and subcutaneous tissue up to an elongated hypoechoic mass measuring 1.1 x 0.4 x 0.8 cm at the 4:00 position in the left breast. Under ultrasound guidance, a 12-gauge vacuum assisted biopsy gun device was used to obtain 3 core samples. Following this, a coil-shaped biopsy marker was placed at the site of biopsy. Postprocedure mammogram demonstrates appropriate biopsy marker placement. The patient tolerated the procedure well without any immediate complication. The patient was kept in the radiology department for short stay after the procedure and then discharged home in stable condition. IMPRESSION: Successful, uncomplicated ultrasound guided core biopsy of area of a 1.1 cm mass at the 4:00 position in the left breast, full pathology results to follow. Pathology Results: Benign LEFT BREAST, ULTRASOUND GUIDED CORE BIOPSY: Fragments of fibroadipose tissue with hyalinizing fibrosis/scar. Negative for malignancy. Recommendation Follow up mammogram and ultrasound of the left breast in 6 months. KASSANDRA
[2019-04-22 13:09] VITALS: BP 112/70; PULSE 92
== END ==
LOC: RADUSWWP 11:23
PROVIDERS: ATTEND Surgery
DX: N60.32 Fibrosclerosis of left breast (principal); N60.42 Mammary duct ectasia of left breast; L90.5 Scar conditions and fibrosis of skin
CPT/HCPCS: 88305; 77065; 19083; A4648; J2001

== ENCOUNTER 2020-12-19 10:59 | Day surgery (SDC) | payer OTHER ==
[2020-12-15 09:14] VITALS: BMI 26.8
[~2020-12-19 10:59] MED LIST changes: -ACETAMINOPHEN TAB 500 MG TAB PO ONE; -DEXAMETHASONE SOD PHOSPHATE 10 MG/ML 1 ML VIAL IV ONE; +LACTATED RINGERS 1,000 ML IV SCH; +LIDOCAINE 1% (10MG/ML) FOR IV START INTRADERMA PRN; -MELOXICAM 7.5 MG TAB PO ONE; -MIDAZOLAM 2 MG/2 ML VIAL IV PRN; -ONDANSETRON 4 MG/2 ML VIAL IVP ONE; -SCOPOLAMINE 1.5MG/72HR PATCH TRANSDERM ONE; -TRANEXAMIC ACID 1,000 MG in SODIUM CHLORIDE 0.9% 100 ML IVPB ONE; -ceFAZolin IN SWFI 2 GM/20 ML SYRINGE IVP ONE
[2020-12-19 11:19] VITALS: TEMP 98.6
[2020-12-19] MEDS ORDERED: LIDOCAINE 1% (10MG/ML) FOR IV START INTRADERMA ONE (11:25)
[2020-12-19] MEDS ORDERED: PROPOFOL 10 MG/ML 20 ML VIAL IV ONE (11:33)
--- NOTE | 2020-12-19 11:40 | P.GSHP ---
History of Present Illness H&P Date: 12/19/20 Chief Complaint: Positive cologuard 65-year-old female here today for colonoscopy. Recent stool test positive for cologuard. She does not see any blood in the stool. Last colonoscopy 4 years ago. She had a hyperplastic polyp. No family history of colon cancer. 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 History of Any Multi-Drug Resistant Organisms: None Reported Past Surgical History: Breast Surgery, Tubal Ligation Additional Past Surgical History / Comment(s): hemorrhoidectomy, left breast biopsy, TOTAL LEFT KNEE SURGERY Past Anesthesia/Blood Transfusion Reactions: Motion Sickness, Postoperative Nausea & Vomiting (PONV) Smoking Status: Current every day smoker - Past Family History Mother Family Medical History: Cancer Additional Family Medical History / Comment(s): pancreatic Brother(s) Family Medical History: Cancer Additional Family Medical History / Comment(s): bone Medications and Allergies Home Medications Medication Instructions Recorded Confirmed Type Atorvastatin [Lipitor] 40 mg PO QAM 06/24/16 12/15/20 History Losartan [Cozaar] 50 mg PO DAILY 04/12/19 12/19/20 History Cholecalciferol (Vitamin D3) 125 mcg PO DAILY 12/15/20 12/15/20 History [Vitamin D3 (125 MCG = 5,000 IU)] Allergies Allergy/AdvReac Type Severity Reaction Status Date / Time bacitracin Allergy PER Verified 12/19/20 11:14 ALLERGY TEST cobalt Allergy PER Verified 12/19/20 11:14 ALLERGY TEST neomycin Allergy PER Verified 12/19/20 11:14 [From Neosporin ALLERGY ([id number])] TEST nickel Allergy Rash/Hives Verified 12/19/20 11:14 polymyxin B Allergy PER Verified 12/19/20 11:14 [From Neosporin ALLERGY ([id number])] TEST ANTIBIOTIC- MYCINS Allergy Mild PER Uncoded 12/19/20 11:14 ALLERGY TEST DOVE SOAP Allergy Rash/Hives Uncoded 12/19/20 11:14 VITAMIN B-12 Allergy Rash/Hives Uncoded 12/19/20 11:14 Surgical - Exam Vital Signs Temp Pulse Resp BP Pulse Ox 98.6 F 53 L 16 148/68 97 12/19/20 11:18 12/19/20 11:18 12/19/20 11:18 12/19/20 11:18 12/19/20 11:18 Physical exam: General: Well-developed, well-nourished HEENT: Normocephalic, sclerae nonicteric Abdomen: Nontender, nondistended Extremities: No edema Neuro: Alert and oriented Assessment and Plan (1) Positive colorectal cancer screening using Cologuard test Narrative/Plan: Will proceed with colonoscopy Current Visit: Yes Status: Acute Code(s): R19.5 - OTHER FECAL ABNORMALITIES SNOMED Code(s): 513279640
--- NOTE | 2020-12-19 12:00 | P.PCN ---
Date of Procedure: 12/19/20 Procedure(s) Performed: PREOPERATIVE DIAGNOSIS: Positive cologuard test POSTOPERATIVE DIAGNOSIS: Small rectal polyp PROCEDURE: Colonoscopy snare polypectomy ANESTHESIA: MAC SURGEON: Chay Grady M.D. SPECIMENS: Rectal polyp ENDOSCOPIC PROCEDURE: The patient was placed on the endoscopy table in the left decubitus position. The Olympus colonoscope was inserted into the anus and passed under direct visualization to the base of the cecum. The appendiceal orifice was visualized. From that point the scope was slowly withdrawn inspecting all surfaces carefully. There were no neoplastic inflammatory or polypoid lesions throughout the cecum, ascending, transverse, descending, and sigmoid colon. The rectum a small polyp was seen and removed using the snare with cautery technique. There was no visible diverticulosis. Digital rectal examination was normal. The patient was taken to the recovery room in stable condition per anesthesia guidelines. RECOMMENDATIONS: Await biopsy results.
[2020-12-19 12:18] VITALS: BP 117/81; PULSE 75; RESP 16
== END 2020-12-19 12:35 | disposition home or self-care (01) ==
LOC: ORWHC2ENDO 10:59
PROVIDERS: ATTEND Surgery
DX: K62.1 Rectal polyp (principal); E78.5 Hyperlipidemia, unspecified; F17.200 Nicotine dependence, unspecified, uncomplicated; G47.30 Sleep apnea, unspecified; I10 Essential (primary) hypertension; M19.90 Unspecified osteoarthritis, unspecified site
CPT/HCPCS: 45385; 88305; J2704

== ENCOUNTER → 2021-11-14 | Outpatient (CLI) | payer OTHER ==
--- NOTE | 2021-11-23 16:46 | MM ---
Reason for Exam: Screening (asymptomatic). Last mammogram was performed 2 year(s) and 9 month(s) ago. Patient History: Menarche at age 12. First Full-Term at age 17. Postmenopausal. Patient has history of breast feeding. Patient used Hormonal Contraceptives for 1 year. Cyst Aspiration on the Right side. Cyst Aspiration on the Left side. Excisional Biopsy on the Left side. 04/22/2019, Benign Core Biopsy on the left side. Risk Values: Radha 5 year model risk: 1.8%. NCI Lifetime model risk: 6.3%. Prior Study Comparison: 03/09/2019 Bilateral Screening Mammogram, [facility]. 04/05/2019 Left Diagnostic Mammogram, [facility]. 04/22/2019 Left Diagnostic Mammogram, [facility]. Tissue Density: The breast tissue is heterogeneously dense. This may lower the sensitivity of mammography. Findings: Analyzed By CAD. Pattern appears stable. Left breast is slightly smaller than the right, unchanged. No suspicious groups of microcalcifications, spiculated or lobular masses, architectural distortion or other secondary signs of malignancy are mammographically apparent. Overall Assessment: Benign, BI-RAD 2 Management: Screening Mammogram of both breasts in 1 year. A negative mammogram report should not preclude additional follow up of suspicious palpable abnormalities. Patient should continue monthly self breast exam. A clinical breast exam by your physician is recommended on an annual basis and results should be correlated with mammographic findings. Electronically signed and approved by: Ady Tarango D.O. Radiologis
== END | disposition home or self-care (01) ==
LOC: RADMAMWWP 15:02
PROVIDERS: ATTEND Family Medicine
DX: Z12.31 Encounter for screening mammogram for malignant neoplasm of breast (principal); Z78.0 Asymptomatic menopausal state
CPT/HCPCS: 77063; 77067

== ENCOUNTER → 2022-11-27 | Outpatient (CLI) | payer OTHER ==
--- NOTE | 2022-11-27 19:16 | BD ---
EXAMINATION TYPE: Axial Bone Density DATE OF EXAM: 11/27/2022 CLINICAL HISTORY: 67 years old Female. ICD-10 CODE: Z78.0 post menopausal Height: 5 ft 7 in Weight: 192 FRAX RISK QUESTIONS: Alcohol (3 or more units per day): no Family History (Parent hip fracture): no Glucocorticoids (More than 3mos): no (Ex: prednisone, prednisolone, methylprednisolone, dexamethasone, and hydrocortisone). History of Fracture in Adulthood: no Secondary Osteoporosis: 1. Type 1 Diabetes: no 2. Hyperthyroidism: no 3. Menopause before 45: no 4. Malnutrition: no 5. Chronic liver disease: no Rheumatoid Arthritis: no Current Tobacco Use: former RISK FACTORS HISTORY OF: Surgery to Spine/Hip(right/left)/Wrist (right/left): no Family History of Osteoporosis: no Active: yes Diet low in dairy products/other sources of calcium: no Postmenopausal woman: yes Take estrogen and/or progesterone medications: no Lost more than 2 inches in height since high school: no Frequent falls: no Poor Health: good Hyperparathyroidism: no Adrenal Insufficiency: no MEDICATIONS: Additional Medications: cholesterol meds,blood pressure meds , vit d Additional History: EXAM MEASUREMENTS: Bone mineral densitometry was performed using the [employer] Digital System. Bone mineral density as measured about the Lumbar spine is: ----- L1-L4(G/cm2): 1.107 T Score Values are as follows: ----- L1: -0.8 ----- L2: -1.0 ----- L3: -0.1 ----- L4: -0.8 ----- L1-L4: -0.6 Z Score Values are as follows: ----- L1: 0.1 ----- L2: 0.0 ----- L3: 0.8 ----- L4: 0.1 ----- L1-L4: 0.3 baseline Bone mineral density about the R hip (g/cm2): 0.823 Bone mineral density about the L hip (g/cm2): 0.775 T Score values are as follows: -----R Neck: -1.5 -----L Neck: -1.9 -----R Total: -1.0 -----L Total: -1.1 Z Score values are as follows: -----R Neck: -0.4 -----L Neck: -0.8 -----R Total: -0.2 -----L Total: -0.2 baseline FRAX%s: The graph provided illustrates a 10.8% chance for a major osteoporotic fx and a 1.8 % chance for the hips probability for fx in 10 years time. IMPRESSION: Osteopenia (T Score between -2.5 and -1). There is slightly increased risk of fracture and the patient may be considered for treatment. Re-Screen 2-5 years. NOTE: T-SCORE=SD OF THE YOUNG ADULT MEAN.
== END | disposition home or self-care (01) ==
LOC: RADBDWWP 10:32
PROVIDERS: ATTEND Family Medicine
DX: M85.89 Other specified disorders of bone density and structure, multiple sites (principal); Z78.0 Asymptomatic menopausal state; Z87.891 Personal history of nicotine dependence
CPT/HCPCS: 77080

== ENCOUNTER 2023-09-16 10:16 | Emergency (ER) | payer MEDICARE, OTHER ==
--- NOTE | 2023-09-16 10:54 | ED ---
Nausea/Vomiting/Diarrhea HPI - General Chief complaint: Nausea/Vomiting/Diarrhea Stated complaint: Weakness Time Seen by Provider: 09/16/23 10:22 Source: patient, family, RN notes reviewed Mode of arrival: wheelchair Limitations: no limitations - History of Present Illness Initial comments: This is a 68-year-old female who presents to the emergency department for diarrhea. States that this has been going on for a while, but got much worse at the end of last month. She saw her primary care provider at the end of last month and was told to start taking Imodium. She took this for several days without relief. She then followed up with her primary care provider and was started on Lomotil. She again had no relief with this. Does report that her s tool is somewhat formed. The diarrhea seems to be more so related to what she eats. States that every time she eats she runs to the bathroom almost immediately afterwards. Unsure how many times a day she is going, states that it is probably around 10. Denies any blood in her stool. She has some associated nausea but denies any vomiting or abdominal pain. All of the diarrhea is starting to make her feel very weak. She did drop off a stool sample at her PCPs office yesterday. MD complaint: nausea, diarrhea - Related Data Home Medications Medication Instructions Recorded Confirmed Atorvastatin [Lipitor] 40 mg PO DAILY 06/24/16 09/16/23 Losartan [Cozaar] 50 mg PO DAILY 04/12/19 09/16/23 Calcium(Unknown Dose) 1 tab PO DAILY 09/16/23 09/16/23 Diphenox-Atrop 2.5-0.025 mg 1 tab PO Q6H PRN 09/16/23 09/16/23 [Lomotil] Vitamin D3(Unknown Dose) 1 tab PO DAILY 09/16/23 09/16/23 busPIRone HCl [Buspar] 5 mg PO BID PRN 09/16/23 09/16/23 Previous Rx's Medication Instructions Recorded Dicyclomine [Bentyl] 10 mg PO QID #30 capsule 09/16/23 Ondansetron Odt [Zofran Odt] 4 mg PO Q8HR PRN #30 tab 09/16/23 Allergies Allergy/AdvReac Type Severity Reaction Status Date / Time bacitracin Allergy PER Verified 09/16/23 13:44 ALLERGY TEST cobalt Allergy PER Verified 09/16/23 13:44 ALLERGY TEST neomycin Allergy PER Verified 09/16/23 13:44 [From Neosporin ALLERGY ([id number])] TEST nickel Allergy Rash/Hives Verified 09/16/23 13:44 polymyxin B Allergy PER Verified 09/16/23 13:44 [From Neosporin ALLERGY ([id number])] TEST ANTIBIOTIC- MYCINS Allergy Mild PER Uncoded 09/16/23 13:44 ALLERGY TEST DOVE SOAP Allergy Rash/Hives Uncoded 09/16/23 13:44 VITAMIN B-12 Allergy Rash/Hives Uncoded 09/16/23 13:44 Review of Systems ROS Statement: Those systems with pertinent positive or pertinent negative responses have been documented in the HPI. ROS Other: All systems not noted in ROS Statement are negative. 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 History of Any Multi-Drug Resistant Organisms: None Reported Past Surgical History: Breast Surgery, Tubal Ligation Additional Past Surgical History / Comment(s): hemorrhoidectomy, left breast biopsy, TOTAL LEFT KNEE SURGERY Past Anesthesia/Blood Transfusion Reactions: Motion Sickness, Postoperative Nausea & Vomiting (PONV) Past Psychological History: No Psychological Hx Reported Smoking Status: Former smoker Past Alcohol Use History: None Reported Past Drug Use History: None Reported - Past Family History Mother Family Medical History: Cancer Additional Family Medical History / Comment(s): pancreatic Brother(s) Family Medical History: Cancer Additional Family Medical History / Comment(s): bone General Exam Limitations: no limitations General appearance: alert, in no apparent distress Head exam: Present: atraumatic, normocephalic, normal inspection Respiratory exam: Present: normal lung sounds bilaterally. Absent: respiratory distress, wheezes, rales, rhonchi, stridor Cardiovascular Exam: Present: regular rate, normal rhythm, normal heart sounds. Absent: systolic murmur, diastolic murmur, rubs, gallop, clicks GI/Abdominal exam: Present: soft. Absent: distended, tenderness Neurological exam: Present: alert, oriented X3, CN II-XII intact Psychiatric exam: Present: normal affect, normal mood Skin exam: Present: warm, dry, intact, normal color. Absent: rash Course Vital Signs 09/16/23 09/16/23 09/16/23 10:18 13:00 14:03 Temperature 98.2 F 97.9 F 97.9 F Pulse Rate 78 69 71 Respiratory 16 18 18 Rate Blood Pressure 150/84 128/75 131/82 O2 Sat by Pulse 97 96 97 Oximetry Medical Decision Making - Medical Decision Making This is a 68 year old female who presents to the emergency department for diarrhea. Was pt. sent in by a medical professional or institution? @ -No Did you speak to anyone other than the patient for history? @ -No Did you review nursing and triage notes? @ -Yes, and I agree, it is accurate with regards to the patient's symptoms. Were old charts reviewed? @ -No Differential Diagnosis? @ -Differential Diarrhea: Gastroenteritis, C. difficile, foodborne illness, IBS, this is not meant to be an all-inclusive list. EKG interpreted by me (3pts min.)? @ -Not obtained X-rays interpreted by me (1pt min.)? @ -Not obtained CT interpreted by me (1pt min.)? @ -CT scan of the abdomen and pelvis obtained. My interpretation identifies no evidence of bowel wall thickening or free air. U/S interpreted by me (1pt. min.)? @ -Not obtained What testing was considered but not performed? (CT, X-rays, U/S, labs)? Why? @ -None What meds were considered but not given? Why? @ -None Did you discuss the management of the patient with other professionals? @ -No Did you reconcile home meds? @ -No Was smoking cessation discussed for >3mins.? @ -I discussed smoking cessation for greater than 3 minutes. The risk of smoking were discussed with the patient including but not limited to risks of cancer, stroke, coronary artery disease and COPD. Also discussed with patient were multiple methods of quitting smoking. Lastly we discussed the financial cost of smoking. Was critical care preformed (if so, how long)? @ -No Were there social determinants of health that impacted care today? How? (Homelessness, low income, unemployed, alcoholism, drug addiction, transportation, low edu. Level, literacy, decrease access to med. care, half-way, rehab)? @ -No Was there de-escalation of care discussed even if they declined? (Discuss DNR or withdrawal of care, Hospice)? @ -No What co-morbidities impacted this encounter? (DM, HTN, Smoking, COPD, CAD, Cancer, CVA, Hep., AIDS, mental health diagnosis, sleep apnea, morbid obesity)? @ -HLD, HTN, smoking Was patient admitted / discharged? @ -Discharged. Lab work unremarkable. Urinalysis negative for signs of infection. CT scan of the abdomen and pelvis obtained revealing cholelithiasis without other acute process. Patient given a liter bolus of IV fluids, Bentyl, and Zofran. She had improvement while in the emergency department. She was able to eat Jell-O and did not have a bowel movement while she was in the emergency department. We did attempt to get a stool sample, however she was able to provide one to her primary care provider yesterday. Additionally, she was unable to provide us with one. Prescription for Zofran and Bentyl provided for further symptomatic management. Also discussed [id number] probiotics. Otherwise advised to follow-up with her primary care provider. Undiagnosed new problem with uncertain prognosis? @ -None Drug Therapy requiring intensive monitoring for toxicity (Heparin, Nitro, Insulin, Cardizem)? @ -None Were any procedures done? @ -None Diagnosis/symptom? @ -Diarrhea Acute, or Chronic, or Acute on Chronic? @ -Acute Uncomplicated (without systemic symptoms) or Complicated (systemic symptoms)? @ -Uncomplicated Side effects of treatment? @ -None Exacerbation, Progression, or Severe Exacerbation] @ -Not applicable Poses a threat to life or bodily function? @ -No Return precautions reviewed in depth, the patient is instructed to return to the emergency department with any new, worsening, or concerning symptoms. Patient verbalized understanding. This case was discussed in detail with the attending ED physician, Dr. Piedra. Presentation, findings, and treatment plan discussed in detail as well. - Lab Data Result diagrams: 09/16/23 10:59 09/16/23 10:59 Lab Results 09/16/23 09/16/23 09/16/23 Range/Units 10:59 10:59 10:59 WBC 10.3 (3.8-10.6) k/uL RBC 4.84 (3.80-5.40) m/uL Hgb 15.5 (11.4-16.0) gm/dL Hct 46.5 H (34.0-46.0) % MCV 95.9 (80.0-100.0) fL MCH 32.1 (25.0-35.0) pg MCHC 33.4 (31.0-37.0) g/dL RDW 12.8 (11.5-15.5) % Plt Count 294 (150-450) k/uL MPV 8.1 Neutrophils % 81 % Lymphocytes % 11 % Monocytes % 5 % Eosinophils % 1 % Basophils % 1 % Neutrophils # 8.4 H (1.3-7.7) k/uL Lymphocytes # 1.1 (1.0-4.8) k/uL Monocytes # 0.6 (0-1.0) k/uL Eosinophils # 0.1 (0-0.7) k/uL Basophils # 0.1 (0-0.2) k/uL Sodium 138 (137-145) mmol/L Potassium 4.2 (3.5-5.1) mmol/L Chloride 104 (98-107) mmol/L Carbon Dioxide 26 (22-30) mmol/L Anion Gap 8 mmol/L BUN 16 (7-17) mg/dL Creatinine 0.83 (0.52-1.04) mg/dL Est GFR (CKD-EPI)AfAm 84 (>60 ml/min/1.73 sqM) Est GFR (CKD-EPI)NonAf 73 (>60 ml/min/1.73 sqM) Glucose 111 H (74-99) mg/dL Plasma Lactic Acid Luan (0.7-2.0) mmol/L Calcium 9.9 (8.4-10.2) mg/dL Phosphorus 3.3 (2.5-4.5) mg/dL Magnesium 2.0 (1.6-2.3) mg/dL Total Bilirubin 0.9 (0.2-1.3) mg/dL AST 25 (14-36) U/L ALT 19 (4-34) U/L Alkaline Phosphatase 67 (38-126) U/L Total Protein 6.4 (6.3-8.2) g/dL Albumin 4.3 (3.5-5.0) g/dL Amylase 39 (30-110) U/L Lipase 156 (23-300) U/L TSH 0.759 (0.465-4.680) mIU/L Urine Color Yellow Urine Appearance Cloudy H (Clear) Urine pH 5.5 (5.0-8.0) Ur Specific [place] 1.021 (1.001-1.035) Urine Protein Negative (Negative) Urine Glucose (UA) Negative (Negative) Urine Ketones Negative (Negative) Urine Blood Negative (Negative) Urine Nitrite Negative (Negative) Urine Bilirubin Negative (Negative) Urine Urobilinogen <2.0 (<2.0) mg/dL Ur Leukocyte Esterase Small H (Negative) Urine RBC 3 (0-5) /hpf Urine WBC 3 (0-5) /hpf Ur Squamous Epith Cells 2 (0-4) /hpf Urine Mucus Few H (None) /hpf 09/16/23 Range/Units 10:59 WBC (3.8-10.6) k/uL RBC (3.80-5.40) m/uL Hgb (11.4-16.0) gm/dL Hct (34.0-46.0) % MCV (80.0-100.0) fL MCH (25.0-35.0) pg MCHC (31.0-37.0) g/dL RDW (11.5-15.5) % Plt Count (150-450) k/uL MPV Neutrophils % % Lymphocytes % % Monocytes % % Eosinophils % % Basophils % % Neutrophils # (1.3-7.7) k/uL Lymphocytes # (1.0-4.8) k/uL Monocytes # (0-1.0) k/uL Eosinophils # (0-0.7) k/uL Basophils # (0-0.2) k/uL Sodium (137-145) mmol/L Potassium (3.5-5.1) mmol/L Chloride (98-107) mmol/L Carbon Dioxide (22-30) mmol/L Anion Gap mmol/L BUN (7-17) mg/dL Creatinine (0.52-1.04) mg/dL Est GFR (CKD-EPI)AfAm (>60 ml/min/1.73 sqM) Est GFR (CKD-EPI)NonAf (>60 ml/min/1.73 sqM) Glucose (74-99) mg/dL Plasma Lactic Acid Luan 1.6 (0.7-2.0) mmol/L Calcium (8.4-10.2) mg/dL Phosphorus (2.5-4.5) mg/dL Magnesium (1.6-2.3) mg/dL Total Bilirubin (0.2-1.3) mg/dL AST (14-36) U/L ALT (4-34) U/L Alkaline Phosphatase (38-126) U/L Total Protein (6.3-8.2) g/dL Albumin (3.5-5.0) g/dL Amylase (30-110) U/L Lipase (23-300) U/L TSH (0.465-4.680) mIU/L Urine Color Urine Appearance (Clear) Urine pH (5.0-8.0) Ur Specific [place] (1.001-1.035) Urine Protein (Negative) Urine Glucose (UA) (Negative) Urine Ketones (Negative) Urine Blood (Negative) Urine Nitrite (Negative) Urine Bilirubin (Negative) Urine Urobilinogen (<2.0) mg/dL Ur Leukocyte Esterase (Negative) Urine RBC (0-5) /hpf Urine WBC (0-5) /hpf Ur Squamous Epith Cells (0-4) /hpf Urine Mucus (None) /hpf - Radiology Data Radiology results: report reviewed, image reviewed Disposition Clinical Impression: Nicotine dependence, Diarrhea Disposition: HOME SELF-CARE Instructions (If sedation given, give patient instructions): Acute Diarrhea (ED) Additional Instructions: Return to the emergency department with any new, worsening, or concerning symptoms. Take the Zofran up to every 8 hours. This will help with both nausea and diarrhea. Even if you are not having nausea, try taking it for the diarrhea. You can take the Bentyl up to four times daily for the diarrhea and if you develop pain/cramping. Try taking a probiotic and fiber supplement as well. Both can be purchased over the counter. Follow up with your primary care bryan brandt in 1-2 days. Prescriptions: Dicyclomine [Bentyl] 10 mg PO QID #30 capsule Ondansetron Odt [Zofran Odt] 4 mg PO Q8HR PRN #30 tab PRN Reason: Nausea And Vomiting Is patient prescribed a controlled substance at d/c from ED?: No Referrals: Manny Flor MD [Primary Care Provider] - 1-2 days
[2023-09-16] MEDS: SODIUM CHLORIDE 0.9% 1,000 ML IV STA (11:07)
[2023-09-16] MEDS: ONDANSETRON 4 MG/2 ML VIAL IVP STA (11:15)
[2023-09-16 11:19] LABS: Basophils # (A) 0.1 k/uL (0-0.2); Basophils % (A) 1 %; Eosinophils # (A) 0.1 k/uL (0-0.7); Eosinophils % (A) 1 %; HCT 46.5 % (34.0-46.0); HGB 15.5 gm/dL (11.4-16.0); Lymphocytes # (A) 1.1 k/uL (1.0-4.8); Lymphocytes % (A) 11 %; MCH 32.1 pg (25.0-35.0); MCHC 33.4 g/dL (31.0-37.0); MCV 95.9 fL (80.0-100.0); Mean Platelet Volume 8.1; Monocytes # (A) 0.6 k/uL (0-1.0); Monocytes % (A) 5 %; Neutrophils # (A) 8.4 k/uL (1.3-7.7); Neutrophils % (A) 81 %; Platelet Count 294 k/uL (150-450); RBC 4.84 m/uL (3.80-5.40); RDW 12.8 % (11.5-15.5); WBC 10.3 k/uL (3.8-10.6)
[2023-09-16 11:30] LABS: ALT 19 U/L (4-34); AST 25 U/L (14-36); African American GFR (CKD) 84 (>60 ml/min/1.73 sqM); Albumin 4.3 g/dL (3.5-5.0); Alkaline Phosphatase 67 U/L (38-126); Amylase 39 U/L (30-110); Anion Gap 8 mmol/L; Blood Urea Nitrogen 16 mg/dL (7-17); Calcium 9.9 mg/dL (8.4-10.2); Carbon Dioxide 26 mmol/L (22-30); Chloride 104 mmol/L (98-107); Glucose 111 mg/dL (74-99); Lipase 156 U/L (23-300); Non-African American GFR(CKD) 73 (>60 ml/min/1.73 sqM); Phosphorus 3.3 mg/dL (2.5-4.5); Potassium 4.2 mmol/L (3.5-5.1); Sodium 138 mmol/L (137-145); Total Bilirubin 0.9 mg/dL (0.2-1.3); Total Protein 6.4 g/dL (6.3-8.2)
[2023-09-16 11:43] LABS: Appearance,Urine Cloudy (Clear); Bilirubin,Urine Negative (Negative); Blood,Urine Negative (Negative); Color,Urine Yellow; Glucose,Urine (UA) Negative (Negative); Ketones,Urine Negative (Negative); Leukocyte Esterase,Urine Small (Negative); Mucus,Urine Few /hpf; Nitrite,Urine Negative (Negative); PH, Urine 5.5 (5.0-8.0); Protein,Urine Negative (Negative); RBC,Urine 3 /hpf (0-5); Specific Gravity,Urine 1.021 (1.001-1.035); Squamous Epithelial Cell,Urine 2 /hpf (0-4); Urobilinogen,Urine <2.0 mg/dL (<2.0); WBC,Urine 3 /hpf (0-5)
--- NOTE | 2023-09-16 12:36 | CT ---
EXAMINATION TYPE: CT abdomen pelvis w con CT DLP: 1014.8 mGycm, Automated exposure control for dose reduction was used. DATE OF EXAM: 09/16/2023 12:30 PM COMPARISON: None CLINICAL INDICATION:Female, 68 years old with history of Diarrhea, nausea, weakness; Diarrhea,vomitin g and weakness TECHNIQUE: Standard CT of the abdomen and pelvis following the administration of 100 cc of Isovue 3 00 IV contrast material. Coronal and sagittal reformats were performed. FINDINGS: LOWER CHEST: Unremarkable ABDOMEN LIVER: Unremarkable GALLBLADDER AND BILE DUCTS: Cholelithiasis. No biliary duct dilatation. PANCREAS: Unremarkable. SPLEEN: Not enlarged. Calcified splenic artery aneurysm measuring up to 1.7 cm. ADRENAL GLANDS: Unremarkable. KIDNEYS AND URETERS: No evidence of hydronephrosis. Nonobstructive left mid kidney 6 mm calculus. The kidneys enhance symmetrically. Contrast is demonstrated within both collecting systems on the delaye d phase. PELVIS BLADDER: Unremarkable REPRODUCTIVE: Unremarkable. ABDOMEN & PELVIS STOMACH AND BOWEL: Small hiatal hernia, duodenum is unremarkable. No focal bowel wall thickening or s urrounding inflammatory changes. No evidence of bowel obstruction. PERITONEUM: No evidence of pneumoperitoneum or free fluid. VASCULATURE: Mild atherosclerotic calcifications are present throughout the abdominal aorta and its b ranches. No evidence of aortic aneurysm. MUSCULOSKELETAL: No acute osseous abnormalities. Mild retrolisthesis of L4 on L5 defects. Multilevel disc disease most pronounced at L4-L5. LYMPH NODES: No gross evidence for lymphadenopathy. SOFT TISSUE/ABDOMINAL WALL: Unremarkable IMPRESSION: 1. No CT evidence for an acute abdominal/pelvic process. 2. Cholelithiasis. 3. Nonobstructive left renal calculi. 4. Calcified 1.7 cm splenic artery aneurysm.
[2023-09-16 13:08] VITALS: TEMP 97.9
[2023-09-16] MEDS: DICYCLOMINE 10 MG/ML 2 ML AMP IM STA (13:13)
[2023-09-16 14:03] VITALS: RESP 18
[2023-09-16 14:05] VITALS: BP 131/82; PULSE 71
== END 2023-09-16 14:05 | disposition home or self-care (01) ==
LOC: EC 10:16
DX: K80.20 Calculus of gallbladder without cholecystitis without obstruction (principal); N20.0 Calculus of kidney; F17.200 Nicotine dependence, unspecified, uncomplicated; Z88.8 Allergy status to other drugs, medicaments and biological substances; Z88.6 Allergy status to analgesic agent
CPT/HCPCS: 36415; 80053; 84443; 82150; 83605; 83690; 83735; 84100; 85025; 81001; 74177; 99285; 96374; 96361; 96372; 99406; J0500; J2405; Q9967

== ENCOUNTER → 2024-01-12 | Outpatient (CLI) | payer MEDICARE, OTHER ==
--- NOTE | 2024-01-18 18:15 | MM ---
Reason for Exam: Screening (asymptomatic). Last mammogram was performed 2 year(s) and 2 month(s) ago. Patient History: Menarche at age 12. First Full-Term at age 17. Postmenopausal. Patient has history of breast feeding. Patient used Hormonal Contraceptives for 1 year. Cyst Aspiration on the Right side. Cyst Aspiration on the Left side. Excisional Biopsy on the Left side. 04/22/2019, Benign Core Biopsy on the left side. Risk Values: Radha 5 year model risk: 1.9%. NCI Lifetime model risk: 5.7%. Prior Study Comparison: 04/05/2019 Left Diagnostic Mammogram, [facility]. 04/22/2019 Left Diagnostic Mammogram, [facility]. 11/14/2021 Bilateral MG 3D screening mammo w/cad, [facility]. Tissue Density: The breasts are heterogeneously dense, which may obscure small masses. Findings: Analyzed By CAD. The pattern is symmetrical. Nodularity is present bilaterally. Benign scattered calcifications are present. Infiltrates are present. No suspicious groups of microcalcifications, spiculated or lobular masses, architectural distortion or other secondary signs of malignancy are mammographically apparent. Overall Assessment: Benign, BI-RAD 2 Management: Screening Mammogram of both breasts in 1 year. A negative mammogram report should not preclude additional follow up of suspicious palpable abnormalities. Patient should continue monthly self breast exam. A clinical breast exam by your physician is recommended on an annual basis and results should be correlated with mammographic findings. Note on Radha scores and lifetime risk: 1. A Radha score greater than 3% is considered moderate risk. If this is the case, consider specialist referral to assess eligibility for a risk reducing agent. 2. If overall lifetime risk for the development of breast cancer is 20% or higher, the patient may qualify for future screening with alternating mammogram and breast MRI. [facility], , 01/18/2024 6:12 PM. Electronically signed and approved by: Ady Tarango D.O. Radiologis
== END | disposition home or self-care (01) ==
LOC: RADMAMWWP 12:43
PROVIDERS: ATTEND Family Medicine
DX: Z12.31 Encounter for screening mammogram for malignant neoplasm of breast (principal); R92.333 Mammographic heterogeneous density, bilateral breasts; Z78.0 Asymptomatic menopausal state
CPT/HCPCS: 77063; 77067

== ENCOUNTER 2024-06-14 05:15 | Observation (INO) | payer MEDICARE, OTHER ==
--- NOTE | 2024-06-14 06:09 | ED ---
Dizziness HPI - General Chief Complaint: Dizziness Stated Complaint: Dizziness Time Seen by Provider: 06/14/24 05:54 Source: patient, family, EMS, RN notes reviewed Mode of arrival: EMS Limitations: no limitations - History of Present Illness Initial Comments: This is a 68-year-old female who presents to the emergency department for dizziness. States that when she woke up this morning she started to feel very clammy and ill. She then felt very dizzy. Describes this as a room spinning sensation. This was worse with movement and states that she felt very nauseous as well. She was unable to get up to go to the bathroom due to the dizziness and feeling off balance. Patient states that she has to keep her eyes close closed, as opening them will trigger the symptoms. Denies any chest pain or shortness of breath. Denies any history of vertigo or similar symptoms in the past. However, her does note that she struggles with motion sickness on car rides. She was given Zofran en route by EMS without any improvement in nausea. MD Complaint: dizziness - Related Data Home Medications Medication Instructions Recorded Confirmed Atorvastatin [Lipitor] 40 mg PO DAILY 06/24/16 06/14/24 Losartan [Cozaar] 50 mg PO DAILY 04/12/19 06/14/24 busPIRone HCl [Buspar] 5 mg PO BID PRN 09/16/23 06/14/24 Calcium Carbonate [Calcium] 600 mg PO DAILY 06/14/24 06/14/24 Cholecalciferol (Vitamin D3) 50 mcg PO DAILY 06/14/24 06/14/24 [Vitamin D3 (50 Mcg = 2000 Iu)] Colestipol HCl 1 gm PO BID 06/14/24 06/14/24 Allergies Allergy/AdvReac Type Severity Reaction Status Date / Time bacitracin Allergy PER Verified 06/14/24 09:48 ALLERGY TEST cobalt Allergy PER Verified 06/14/24 09:48 ALLERGY TEST neomycin Allergy PER Verified 06/14/24 09:48 [From Neosporin ALLERGY ([id number])] TEST nickel Allergy Rash/Hives Verified 06/14/24 09:48 polymyxin B Allergy PER Verified 06/14/24 09:48 [From Neosporin ALLERGY ([id number])] TEST ANTIBIOTIC- MYCINS Allergy Mild PER Uncoded 06/14/24 09:48 ALLERGY TEST DOVE SOAP Allergy Rash/Hives Uncoded 06/14/24 09:48 VITAMIN B-12 Allergy Rash/Hives Uncoded 06/14/24 09:48 Review of Systems ROS Statement: Those systems with pertinent positive or pertinent negative responses have been documented in the HPI. ROS Other: All systems not noted in ROS Statement are negative. 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 History of Any Multi-Drug Resistant Organisms: None Reported Past Surgical History: Breast Surgery, Tubal Ligation Additional Past Surgical History / Comment(s): hemorrhoidectomy, left breast biopsy, TOTAL LEFT KNEE SURGERY Past Anesthesia/Blood Transfusion Reactions: Motion Sickness, Postoperative Nausea & Vomiting (PONV) Past Psychological History: No Psychological Hx Reported Smoking Status: Former smoker Past Alcohol Use History: None Reported Past Drug Use History: None Reported - Past Family History Mother Family Medical History: Cancer Additional Family Medical History / Comment(s): pancreatic Brother(s) Family Medical History: Cancer Additional Family Medical History / Comment(s): bone General Exam Limitations: no limitations General appearance: alert, in no apparent distress Head exam: Present: atraumatic, normocephalic, normal inspection Eye exam: Present: normal appearance, PERRL, EOMI. Absent: scleral icterus, conjunctival injection, periorbital swelling Respiratory exam: Present: normal lung sounds bilaterally. Absent: respiratory distress, wheezes, rales, rhonchi, stridor Cardiovascular Exam: Present: regular rate, normal rhythm Neurological exam: Present: alert, oriented X3, CN II-XII intact, other (HINTS exam negative) Expanded Cerebellar function: Finger to Nose: Normal, Heel to [place]: Normal, [place]: Normal Motor strength exam: RUE: 5, LUE: 5, RLE: 5, LLE: 5 Psychiatric exam: Present: normal affect, normal mood Skin exam: Present: warm, dry, intact, normal color. Absent: rash Course Vital Signs 06/14/24 06/14/24 06/14/24 05:17 07:23 09:46 Temperature 98.3 F Pulse Rate 69 60 69 Respiratory 18 18 16 Rate Blood Pressure 134/82 122/69 125/60 O2 Sat by Pulse 91 L 99 96 Oximetry Medical Decision Making - Medical Decision Making This is a 68 year old female who presents to the emergency department for dizziness. Was pt. sent in by a medical professional or institution? @ -No Did you speak to anyone other than the patient for history? @ -No Did you review nursing and triage notes? @ -Yes, and I agree, it is accurate with regards to the patient's symptoms. Were old charts reviewed? @ -No Differential Diagnosis? @ -Differential Dizziness: Benign paroxysmal positional Vertigo, Meniere's disease, otitis media, acoustic neuroma, vertebrobasilar insufficiency, cerebellar stroke, encephalitis, hypovolemic, arrhythmia, coronary artery syndrome, anemia, this is not meant to be an all-inclusive list EKG interpreted by me (3pts min.)? @ -EKG interpreted by me demonstrating the following: Sinus bradycardia. Ventricular rate 52 bpm, SC interval 142 ms, QRS duration 90 ms, QTc 421 ms. X-rays interpreted by me (1pt min.)? @ -Not obtained CT interpreted by me (1pt min.)? @ -CT scan of the brain obtained. My interpretation identifies no evidence of an acute intracranial hemorrhage. CTA of the head and neck obtained. My interpretation identifies no evidence of an aneurysm. U/S interpreted by me (1pt. min.)? @ -Not obtained What testing was considered but not performed? (CT, X-rays, U/S, labs)? Why? @ -None What meds were considered but not given? Why? @ -None Did you discuss the management of the patient with other professionals? @ -Yes, Dr. Flor, who accepts the patient for admission Did you reconcile home meds? @ -Yes Was smoking cessation discussed for >3mins.? @ -I discussed smoking cessation for greater than 3 minutes. The risk of smoking were discussed with the patient including but not limited to risks of cancer, stroke, coronary artery disease and COPD. Also discussed with patient were multiple methods of quitting smoking. Lastly we discussed the financial cost of smoking. Was critical care preformed (if so, how long)? @ -No Were there social determinants of health that impacted care today? How? (Homelessness, low income, unemployed, alcoholism, drug addiction, transportati on, low edu. Level, literacy, decrease access to med. care, usp, rehab)? @ -No Was there de-escalation of care discussed even if they declined? (Discuss DNR or withdrawal of care, Hospice)? @ -No What co-morbidities impacted this encounter? (DM, HTN, Smoking, COPD, CAD, Cancer, CVA, Hep., AIDS, mental health diagnosis, sleep apnea, morbid obesity)? @ -Smoking, HTN, HLD Was patient admitted / discharged? @ -Admitted. Lab work unremarkable. Urinalysis negative for signs of infection. HINTS exam negative. NIH was 0. CT scan of the brain and CTA of the head and neck obtained revealing no acute intracranial process. We first did a trial of IV fluids, meclizine, and Reglan, however this did not improve symptoms. She was then given a dose of Valium with Zofran and a scopolamine patch. She did find these medications to be beneficial. However, we attempted an ambulation trial with the patient and she became very dizzy again and also developed a headache. She sat back down and advised that her symptoms had essentially returned, but were less severe. She had been given multiple medications at that point and was unable to achieve much of any sustained relief. She continued to be nauseous and was barely able to move. She was subsequently admitted to medicine for intractable dizziness with nausea and vomiting. Case discussed with ED attending Dr. Saeed. Undiagnosed new problem with uncertain prognosis? @ -None Drug Therapy requiring intensive monitoring for toxicity (Heparin, Nitro, Insulin, Cardizem)? @ -None Were any procedures done? @ -None Diagnosis/symptom? @ -Intractable dizziness, nausea vomiting Acute, or Chronic, or Acute on Chronic? @ -Acute Uncomplicated (without systemic symptoms) or Complicated (systemic symptoms)? @ -Complicated Side effects of treatment? @ -None Exacerbation, Progression, or Severe Exacerbation] @ -Not applicable Poses a threat to life or bodily function? @ -Yes, patient unable to function in her current state. - Lab Data Result diagrams: 06/14/24 06:05 06/14/24 06:05 Lab Results 06/14/24 06/14/24 06/14/24 Range/Units 06:05 06:05 06:05 WBC 9.8 (3.8-10.6) k/uL RBC 4.86 (3.80-5.40) m/uL Hgb 15.5 (11.4-16.0) gm/dL Hct 45.0 (34.0-46.0) % MCV 92.6 (80.0-100.0) fL MCH 31.8 (25.0-35.0) pg MCHC 34.4 (31.0-37.0) g/dL RDW 12.6 (11.5-15.5) % Plt Count 271 (150-450) k/uL MPV 8.0 Neutrophils % 82 % Lymphocytes % 12 % Monocytes % 4 % Eosinophils % 1 % Basophils % 0 % Neutrophils # 8.1 H (1.3-7.7) k/uL Lymphocytes # 1.2 (1.0-4.8) k/uL Monocytes # 0.4 (0-1.0) k/uL Eosinophils # 0.1 (0-0.7) k/uL Basophils # 0.0 (0-0.2) k/uL PT 12.4 (10.0-12.5) sec INR 1.2 H (<1.2) Sodium (137-145) mmol/L Potassium (3.5-5.1) mmol/L Chloride (98-107) mmol/L Carbon Dioxide (22-30) mmol/L Anion Gap mmol/L BUN (7-17) mg/dL Creatinine (0.52-1.04) mg/dL Est GFR (CKD-EPI)AfAm (>60 ml/min/1.73 sqM) Est GFR (CKD-EPI)NonAf (>60 ml/min/1.73 sqM) Glucose (74-99) mg/dL Calcium (8.4-10.2) mg/dL Magnesium (1.6-2.3) mg/dL Total Bilirubin (0.2-1.3) mg/dL AST (14-36) U/L ALT (4-34) U/L Alkaline Phosphatase (38-126) U/L Troponin I (0.000-0.034) ng/mL Total Protein (6.3-8.2) g/dL Albumin (3.5-5.0) g/dL Urine Color Light Yellow Urine Appearance Clear (Clear) Urine pH 5.5 (5.0-8.0) Ur Specific [place] 1.013 (1.001-1.035) Urine Protein Negative (Negative) Urine Glucose (UA) Negative (Negative) Urine Ketones Negative (Negative) Urine Blood Negative (Negative) Urine Nitrite Negative (Negative) Urine Bilirubin Negative (Negative) Urine Urobilinogen <2.0 (<2.0) mg/dL Ur Leukocyte Esterase Small H (Negative) Urine RBC 2 (0-5) /hpf Urine WBC 11 H (0-5) /hpf Ur Squamous Epith Cells <1 (0-4) /hpf Hyaline Casts 3 H (0-2) /lpf Urine Mucus Rare H (None) /hpf Urine Yeast (Budding) Rare H (None) /hpf Influenza Type A (PCR) (Not Detectd) Influenza Type B (PCR) (Not Detectd) RSV (PCR) (Not Detectd) SARS-CoV-2 (PCR) (Not Detectd) 06/14/24 06/14/24 06/14/24 Range/Units 06:05 06:05 10:44 WBC (3.8-10.6) k/uL RBC (3.80-5.40) m/uL Hgb (11.4-16.0) gm/dL Hct (34.0-46.0) % MCV (80.0-100.0) fL MCH (25.0-35.0) pg MCHC (31.0-37.0) g/dL RDW (11.5-15.5) % Plt Count (150-450) k/uL MPV Neutrophils % % Lymphocytes % % Monocytes % % Eosinophils % % Basophils % % Neutrophils # (1.3-7.7) k/uL Lymphocytes # (1.0-4.8) k/uL Monocytes # (0-1.0) k/uL Eosinophils # (0-0.7) k/uL Basophils # (0-0.2) k/uL PT (10.0-12.5) sec INR (<1.2) Sodium 138 (137-145) mmol/L Potassium 4.1 (3.5-5.1) mmol/L Chloride 106 (98-107) mmol/L Carbon Dioxide 23 (22-30) mmol/L Anion Gap 9 mmol/L BUN 14 (7-17) mg/dL Creatinine 0.81 (0.52-1.04) mg/dL Est GFR (CKD-EPI)AfAm 86 (>60 ml/min/1.73 sqM) Est GFR (CKD-EPI)NonAf 75 (>60 ml/min/1.73 sqM) Glucose 162 H (74-99) mg/dL Calcium 9.4 (8.4-10.2) mg/dL Magnesium 1.8 (1.6-2.3) mg/dL Total Bilirubin 0.9 (0.2-1.3) mg/dL AST 21 (14-36) U/L ALT 21 (4-34) U/L Alkaline Phosphatase 78 (38-126) U/L Troponin I <0.012 (0.000-0.034) ng/mL Total Protein 6.1 L (6.3-8.2) g/dL Albumin 4.1 (3.5-5.0) g/dL Urine Color Urine Appearance (Clear) Urine pH (5.0-8.0) Ur Specific [place] (1.001-1.035) Urine Protein (Negative) Urine Glucose (UA) (Negative) Urine Ketones (Negative) Urine Blood (Negative) Urine Nitrite (Negative) Urine Bilirubin (Negative) Urine Urobilinogen (<2.0) mg/dL Ur Leukocyte Esterase (Negative) Urine RBC (0-5) /hpf Urine WBC (0-5) /hpf Ur Squamous Epith Cells (0-4) /hpf Hyaline Casts (0-2) /lpf Urine Mucus (None) /hpf Urine Yeast (Budding) (None) /hpf Influenza Type A (PCR) Not Detected (Not Detectd) Influenza Type B (PCR) Not Detected (Not Detectd) RSV (PCR) Not Detected (Not Detectd) SARS-CoV-2 (PCR) Not Detected (Not Detectd) - Radiology Data Radiology results: report reviewed, image reviewed Disposition Clinical Impression: Dizziness, Nausea and vomiting Disposition: ADMITTED IP TO THIS HOSP
[2024-06-14] MEDS: MECLIZINE 12.5 MG TAB PO STA (06:12)
[2024-06-14] MEDS: SODIUM CHLORIDE 0.9% 1,000 ML IV STA (06:13)
[2024-06-14] MEDS: METOCLOPRAMIDE 5 MG/ML 2 ML VIAL IVP STA (06:13)
[2024-06-14 06:29] LABS: ALT 21 U/L (4-34); AST 21 U/L (14-36); African American GFR (CKD) 86 (>60 ml/min/1.73 sqM); Albumin 4.1 g/dL (3.5-5.0); Alkaline Phosphatase 78 U/L (38-126); Anion Gap 9 mmol/L; Blood Urea Nitrogen 14 mg/dL (7-17); Calcium 9.4 mg/dL (8.4-10.2); Carbon Dioxide 23 mmol/L (22-30); Chloride 106 mmol/L (98-107); Glucose 162 mg/dL (74-99); Magnesium 1.8 mg/dL (1.6-2.3); Non-African American GFR(CKD) 75 (>60 ml/min/1.73 sqM); Potassium 4.1 mmol/L (3.5-5.1); Sodium 138 mmol/L (137-145); Total Bilirubin 0.9 mg/dL (0.2-1.3); Total Protein 6.1 g/dL (6.3-8.2)
[2024-06-14 06:30] LABS: Appearance,Urine Clear (Clear); Bilirubin,Urine Negative (Negative); Blood,Urine Negative (Negative); Budding Yeast,Urine Rare /hpf; Color,Urine Light Yellow; Glucose,Urine (UA) Negative (Negative); Hyaline Casts,Urine 3 /lpf (0-2); Ketones,Urine Negative (Negative); Leukocyte Esterase,Urine Small (Negative); Mucus,Urine Rare /hpf; Nitrite,Urine Negative (Negative); PH, Urine 5.5 (5.0-8.0); Protein,Urine Negative (Negative); RBC,Urine 2 /hpf (0-5); Specific Gravity,Urine 1.013 (1.001-1.035); Squamous Epithelial Cell,Urine <1 /hpf (0-4); Urobilinogen,Urine <2.0 mg/dL (<2.0); WBC,Urine 11 /hpf (0-5)
[2024-06-14 06:38] LABS: INR 1.2 (<1.2)
[2024-06-14 06:39] LABS: Basophils % (A) 0 %; Eosinophils # (A) 0.1 k/uL (0-0.7); Eosinophils % (A) 1 %; HGB 15.5 gm/dL (11.4-16.0); Lymphocytes # (A) 1.2 k/uL (1.0-4.8); Lymphocytes % (A) 12 %; MCH 31.8 pg (25.0-35.0); MCHC 34.4 g/dL (31.0-37.0); MCV 92.6 fL (80.0-100.0); Monocytes # (A) 0.4 k/uL (0-1.0); Monocytes % (A) 4 %; Neutrophils # (A) 8.1 k/uL (1.3-7.7); Neutrophils % (A) 82 %; Platelet Count 271 k/uL (150-450); Prothrombin Time 12.4 sec (10.0-12.5); RBC 4.86 m/uL (3.80-5.40); RDW 12.6 % (11.5-15.5); WBC 9.8 k/uL (3.8-10.6)
--- NOTE | 2024-06-14 06:43 | CT ---
EXAMINATION TYPE: CT brain wo con DATE OF EXAM: 06/14/2024 COMPARISON: NONE CLINICAL INDICATION: Female, 68 years old with history of Dizziness, Pt complains of sudden onset of dizziness beginning at 0230. Pt denies any hx of vertigo. TECHNIQUE: CT scan of the head is performed without contrast. CT DLP: 1127.6 mGycm. Automated Exposure Control for Dose Reduction was Utilized. FINDINGS: There is no acute intracranial hemorrhage or midline shift identified. There is mild diff use ventricular and sulcal prominence consistent with diffuse age-related cerebral atrophy. There is mild low-attenuation in the periventricular white matter consistent with chronic small vessel ischem ic change. There is 9 mm mucous retention cyst or polyp in the superior left maxillary sinus axial im age 17 and bilateral polyps in the ethmoid sinuses. The globes are intact bilaterally. No suspicious opacification of mastoid air cells. IMPRESSION: No acute intracranial hemorrhage or midline shift. [facility], , 06/14/2024 6:40 AM
[2024-06-14] MEDS: SCOPOLAMINE 1 MG/72 HR PATCH TRANSDERM STA (07:19)
[2024-06-14] MEDS: ONDANSETRON 4 MG/2 ML VIAL IVP STA (07:20)
--- NOTE | 2024-06-14 10:08 | CT ---
EXAMINATION TYPE: CT angio head neck DATE OF EXAM: 06/14/2024 9:51 AM COMPARISON: None. CLINICAL INDICATION: Female, 68 years old with history of Dizziness, headache, Dizziness, headache TECHNIQUE: CTA scan is performed with axial images are obtained, coronal and sagittal reformatted ely ges are reviewed. MIP images created on a separate workstation and submitted for review. 3-D reconstr ucted images are created on an independent workstation and reviewed. Source images are reviewed. CHAS CET criteria was used in interpretation of this exam? Contrast used:65 ml mL of Isovue 370 with IV Contrast, (none if empty) Oral contrast used: (none if empty) CT DLP: 460.1 mGycm, Automated exposure control for dose reduction was used. FINDINGS: Carotid/Vascular Structures: There is a 3 vessel arch. Common carotid arteries bifurcate into internal and external carotid arteries without significant domitila w limiting stenosis. Vertebral arteries are codominant. Internal carotid arteries and vertebral arteries are patent to the skull base. Cervical of [place]: Vertebral basilar system appears normal. Posterior cerebral vasculature is unrema rkable. Internal carotid arteries bifurcate normally into A1 and M1 segments. A2 segments are normal. The anterior communicating artery is patent. The right posterior communicating artery is patent. The left posterior communicating artery is patent. IMPRESSION: 1. No flow-limiting stenosis bilateral carotid bifurcations. 2. Normal [place] of [place] [facility], , 06/14/2024 10:06 AM
[2024-06-14] MEDS ORDERED: MORPHINE SULFATE 4 MG/ML SYRINGE IV PRN (10:09)
[2024-06-14] MEDS ORDERED: IBUPROFEN 400 MG TAB PO PRN (10:09)
[2024-06-14] MEDS ORDERED: ACETAMINOPHEN TAB 325 MG TAB PO PRN (10:09)
[2024-06-14] MEDS ORDERED: NALOXONE 0.4 MG/ML 1 ML VIAL IV PRN (10:09)
[2024-06-14] MEDS ORDERED: ONDANSETRON 4 MG/2 ML VIAL IVP PRN (10:09)
[2024-06-14] MEDS ORDERED: KETOROLAC 15 MG/ML 1 ML VIAL IVP PRN (10:09)
[2024-06-14] MEDS ORDERED: busPIRone HCl 5 MG TAB PO PRN (10:10)
[2024-06-14] MEDS: SODIUM CHLORIDE 0.9% 1,000 ML IV SCH (10:20)
[2024-06-14] MEDS ORDERED: METOCLOPRAMIDE 5 MG/ML 2 ML VIAL IVP PRN (10:23)
[2024-06-14 11:28] LABS: Influenza A Not Detected (Not Detectd); Influenza B Not Detected (Not Detectd); RSV Not Detected (Not Detectd)
[2024-06-14] MEDS: NON FORMULARY DRUG (Colestipol Hcl [Colestipol Hcl] 1 GM Tablet) PO SCH (21:15)
[2024-06-15] MEDS: CALCIUM CARBONATE 500 MG CHEWABLE PO SCH (09:08)
[2024-06-15] MEDS: LOSARTAN 50 MG TAB PO SCH (09:08)
[2024-06-15] MEDS: CHOLECALCIFEROL 25 MCG (1000 IU) TABLET PO SCH (09:08)
[2024-06-15] MEDS: PANTOPRAZOLE 40 MG/10 ML VIAL IV SCH (09:08)
[2024-06-15] MEDS: MECLIZINE 25 MG TAB PO PRN (09:08)
[2024-06-15] MEDS: ATORVASTATIN 40 MG TAB PO SCH (09:08)
[2024-06-15 09:32] VITALS: RESP 18
[2024-06-15 13:55] VITALS: BP 110/54; PULSE 53; TEMP 98.6
--- NOTE | 2024-06-15 17:24 | DS ---
DISCHARGE SUMMARY CHIEF COMPLAINT: Labyrinthitis with ataxia, inability to ambulate, nausea and vomiting. HISTORY OF PRESENT ILLNESS AND PHYSICAL EXAMINATION: Details of this lady's history and physical can be found in the initial workup. LABORATORY STUDIES: While she was in the hospital, she had laboratory studies, details of which can be found in the laboratory section of her chart. COURSE IN THE HOSPITAL: After admission, she was placed on bedrest, started on intravenous fluids and antiemetics as well as Antivert. Dizziness was gone by the next day and she is doing well. She is able to be up and about and ambulate without being nauseated. She will go home on her usual activity, diet, medication. FINAL DIAGNOSES: 1. Labyrinthitis. 2. Intractable nausea and vomiting. 3. Inability to ambulate due to ataxia. OPERATIONS: None. CONSULTATION: None. She is improved. KIMBERLEY / CORY: [id number] /
--- NOTE | 2024-06-16 02:24 | HP ---
HISTORY AND PHYSICAL CHIEF COMPLAINT: Vertigo, nausea and vomiting with inability to ambulate. HISTORY OF PRESENT ILLNESS: This is a first time admission for this 68-year-old female, who has a history of well- controlled hypertension. She used to smoke, but has stopped. She started to develop vertigo and it became so extreme that she could not walk and then she started vomiting and she came to the emergency room. REVIEW OF SYSTEMS: She denies hematemesis, melena, hematochezia, abdominal pain, tinnitus, loss of hearing in 1 ear, etc. Past medical history, family history, and personal and social histories are otherwise unremarkable or noncontributory. MEDICATIONS: She takes, 1. Colestipol. 2. Buspirone p.r.n. 3. Atorvastatin. 4. Losartan. 5. Vitamin D. PHYSICAL EXAMINATION: VITAL SIGNS: Normal. HEAD, EARS, EYES, NOSE, MOUTH, AND THROAT: Normal. CHEST: Clear. CARDIAC: Normal sinus rhythm. Carotids are normal. ABDOMEN: Soft and nontender. EXTREMITIES: Normal. NEUROLOGICAL: She is intact except she did have reproducible vertigo. DIAGNOSES: She is admitted to the hospital diagnoses of, 1. Vertigo. 2. Nausea and vomiting. 3. Ataxia and inability ambulate. 4. History of hypertension. PLAN: 1. Bedrest. 2. IV fluids. 3. Antivert and discharge when she is able to ambulate and not vomit. KIMBERLEY / CORY: [id number] /
== END 2024-06-15 16:33 | disposition home or self-care (01) ==
LOC: EC 05:15 → 6NMEDSUR 11:20 → 5NMEDONC 16:30
PROVIDERS: ADMIT Family Medicine; ATTEND Family Medicine
DX: H83.09 Labyrinthitis, unspecified ear (principal); I10 Essential (primary) hypertension; E78.5 Hyperlipidemia, unspecified; R00.1 Bradycardia, unspecified; Z79.899 Other long term (current) drug therapy; Z11.52 Encounter for screening for COVID-19; Z11.59 Encounter for screening for other viral diseases; Z88.1 Allergy status to other antibiotic agents; Z88.8 Allergy status to other drugs, medicaments and biological substances; Z91.048 Other nonmedicinal substance allergy status; Z87.891 Personal history of nicotine dependence
CPT/HCPCS: 96375 ×2; 96361; 96374; 99285; 36415; 93005; 80053; 83735; 84484; 85025; 85610; 81001; 87636; 70496; 70450; 70498; G0378 ×3; J2765; J3360; J2405; Q9967; J2470